=== PATIENT | female | born 1935 | race Caucasian/White ===

== ENCOUNTER 2019-11-06 15:42 | Outpatient (CLI) | payer OTHER, SELFPAY ==
--- NOTE | ~2019-11-06 | MM_ITS ---
EXAMINATION: MM screening paramjit BI w marley HISTORY: Screening mammogram TECHNIQUE: Craniocaudal and mediolateral oblique 3-D tomosynthesis images were obtained and synthetic 2-D images were generated. CAD analysis was submitted and interpreted. COMPARISON: 07/14/2018 bilateral digital screening mammogram 06/13/2017 diagnostic left digital mammogram 06/07/2017 and 05/31/2016 bilateral digital screening mammogram examinations BREAST PARENCHYMAL COMPOSITION: The breasts are heterogeneously dense, which may obscure small masses . FINDINGS: There are scattered bilateral benign calcifications. There is no evidence of suspicious mas s, calcification, or architectural distortion to suggest malignancy in either breast. There has been no suspicious interval change. IMPRESSION: 1. No mammographic evidence of malignancy. 2. Recommend routine screening mammography in one year. BI-RADS Category 2: Benign finding(s). Reviewed, dictated and finalized at location A.
== END 2019-11-06 15:43 | disposition home or self-care (01) ==
LOC: ANHIMG 15:47
PROVIDERS: PCP Internal Medicine; Visit Provider Internal Medicine
DX: Z12.31 Encounter for screening mammogram for malignant neoplasm of breast (principal)
CPT/HCPCS: 77063; 77067

== ENCOUNTER 2021-03-10 10:37 | Outpatient (CLI) | payer OTHER, SELFPAY ==
--- NOTE | ~2021-03-10 | MM_ITS ---
EXAMINATION: MM screening paramjit BI w marley HISTORY: Screening mammogram TECHNIQUE: Craniocaudal and mediolateral oblique 3-D tomosynthesis images were obtained and synthetic 2-D images were generated. CAD analysis was submitted and interpreted. COMPARISON: 11/06/2019, 07/14/2018, 06/13/2017, 06/07/2017 BREAST PARENCHYMAL COMPOSITION: The breasts are heterogeneously dense, which may obscure small masses . FINDINGS: Scattered benign-appearing calcifications are present. There is no evidence of suspicious m ass, calcification, or architectural distortion to suggest malignancy in either breast. There has bee n no suspicious interval change. IMPRESSION: 1. No mammographic evidence of malignancy. 2. Recommend routine screening mammography while the patient remains in good health. BI-RADS Category 2: Benign finding(s). Reviewed, dictated and finalized at location A. 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 No mammographic evidence of malignancy. 2. Recommend routine screening mammography while the patient remains in good he alth. BI-RADS Category 2: Benign finding(s).
== END 2021-03-10 10:38 | disposition home or self-care (01) ==
PROVIDERS: PCP Internal Medicine; Visit Provider Internal Medicine
DX: Z12.31 Encounter for screening mammogram for malignant neoplasm of breast (principal)
CPT/HCPCS: 77063; 77067

== ENCOUNTER 2022-04-25 12:15 | Emergency (ER) | payer OTHER, SELFPAY ==
[2022-04-25 12:16] VITALS: BP 132/71; PULSE 80; RESP 18; TEMP 36.9; O2SAT 99
[2022-04-25 15:26] VITALS: O2SAT 98
[2022-04-25 15:30] VITALS: O2SAT 95
[2022-04-25 15:31] VITALS: BP 147/74; O2SAT 98
--- NOTE | 2022-04-25 15:32 | ED.LOWEXIN ---
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 Patient states the pain feels identical to previous flare-ups but is more severe in nature. She was unable to walk this morning due to pain. She attempted her home [place] 7/ but did not have immediate relief. Patient presents now improved 3 hours after taking her [place]. She has been able to walk. Denies trauma to the leg. She follows with Dr. De La Torre from neurosurgery and is scheduled to have an MRI done next week. No saddle anesthesia, incontinence or retention of bowel or bladder. Related Data Home Medications Medication Instructions Recorded Confirmed Lactobacills gasseri-Bifidobac cap PO 04/09/22 04/09/22 bifidum,longum 1.5 billion cell capsule (Apportable) atenolol 50 mg tablet 50 mg PO DAILY 04/09/22 04/09/22 atorvastatin 40 mg tablet 40 mg PO DAILY 04/09/22 04/09/22 benazepril 10 mg tablet 10 mg PO DAILY 04/09/22 04/09/22 diclofenac sodium 75 mg 75 mg PO BID 04/09/22 04/09/22 tablet,delayed release digoxin 250 mcg (0.25 mg) tablet 250 mcg PO DAILY 04/09/22 04/09/22 levothyroxine 50 mcg capsule 50 mcg PO DAILY 04/09/22 04/09/22 metoprolol tartrate 25 mg tablet 12.5 mg PO BID 04/09/22 04/09/22 multivitamin (Daily Multi-Vitamin 1 tablet PO DAILY 04/09/22 04/09/22 tablet) periton.dialysis 7-2.5 % dextr ml intraperitoneal 04/09/22 04/09/22 (Delflex with 2.5 % Dextrose) triamterene 37.5 1 cap PO DAILY 04/09/22 04/09/22 mg-hydrochlorothiazide 25 mg capsule vitamin B complex (B 1 tablet PO DAILY 04/09/22 04/09/22 Complex-Vitamin B12 tablet) Allergies Allergy/AdvReac Type Severity Reaction Status Date / Time No Known Allergies Allergy Verified 04/09/22 10:35 Review of Systems Review of Systems: Gen.: Denies fevers or chills Eyes: Denies eye pain or visual change ENT: Denies congestion Respiratory: Denies shortness of breath or cough CV: Denies chest pain or palpitations GI: Denies abdominal pain nausea, emesis or diarrhea denies burning, urgency, frequency or hematuria Musculoskeletal: Reports right lower extremity pain Neuro: Denies numbness, tingling, weakness or focal weakness Skin: Denies rash Except as documented, all other systems reviewed and negative PMFSH Social History Social History Smoking status: Never smoker Exam Narrative: APPEARANCE: Well appearing, no pain in distress, well-nourished. Head: Normocephalic and atraumatic. EYES: PERRLA/EOMI, conjunctivae clear NOSE: No nasal drainage EARS: External ear normal in appearance THROAT: Oropharynx is clear. Mucous membranes are moist. NECK: Supple. No adenopathy, no masses. RESPIRATORY: Airway patent, respirations nonlabored. Clear to auscultation bilaterally, no rales, rhonchi, wheezing. CARDIOVASCULAR: Regular rate and rhythm without murmurs, rubs, or gallops. ABDOMINAL: Normoactive bowel sounds. Soft, nontender, nondistended. No rebound tenderness or guarding. MUSCULOSKELETAL: Extremities are warm and well-perfused. Moves all extremities well. No edema. NEURO: Normal speech. No focal neurologic deficits. SKIN: Skin is warm and dry. No rashes. PSYCHIATRIC: Normal affect/mood. Course Vital Signs Vital signs: Vital Signs Temperature 98.4 F 04/25/22 12:16 Pulse Rate 80 04/25/22 12:16 Respiratory Rate 18 04/25/22 12:16 Blood Pressure 132/71 04/25/22 12:16 Pulse Oximetry 99 04/25/22 12:16 Oxygen Delivery Room Air 04/25/22 12:16 Temperature 98.4 F 04/25/22 12:16 Pulse Rate 80 04/25/22 12:16 Respiratory Rate 18 04/25/22 12:16 Blood Pressure 147/74 H 04/25/22 15:31 Pulse Oximetry 98 04/25/22 15:31 Oxygen [facility]
== END 2022-04-25 17:50 | disposition home or self-care (01) ==
PROVIDERS: Emergency Provider Physician Assistant; PCP Internal Medicine
DX: M43.16 Spondylolisthesis, lumbar region (principal)
CPT/HCPCS: 99281

== ENCOUNTER 2022-05-17 10:43 | Outpatient (CLI) | payer OTHER, SELFPAY ==
--- NOTE | ~2022-05-17 | XR_ITS ---
Lumbosacral Spine: AP and lateral views, with neutral, flexion, and extension positioning. Clinical History: Pain Findings: The normal lordotic curve is maintained. No fracture identified. 7 mm anterolisthesis of L3 over L4 present. 1.6 cm anterolisthesis of L4 over L5 present. There are advanced facet joint degene rative changes from L3 through S1. There is moderate to severe degenerative disc narrowing at L4-L5 a nd L5-S1. No definite instability seen on flexion or extension views. The sacroiliac joints are radha lly outlined. Impression: 1.6 cm anterolisthesis of L4 over L5. 0.7 cm anterolisthesis of L3 over L4. No definite instability seen on flexion or extension. Additional degenerative spondylitic changes, as noted above. Reviewed, dictated and finalized at [facility]. 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 0.7 cm anterolisthesis of L3 over L4. No definite instability seen on flexion or extension. Additional degenerative spondylitic changes, as noted above.
--- NOTE | ~2022-05-17 | MR_ITS ---
EXAMINATION: MR lumbar spine wo con DATE: 05/17/2022 11:37 INDICATION: Back pain. TECHNIQUE: Magnetic resonance imaging (MRI) of the lumbar spine was performed without intravenous con trast. Sequences included sagittal T2-weighted FSE, sagittal T2-weighted FS FSE, sagittal T1-weighted FSE, and axial T2-weighted FSE. COMPARISON: Lumbar spine radiographs 05/17/2022 FINDINGS: There is 8 degrees dextrocurvature of lumbar spine. There is 12 mm anterolisthesis of L4 on L5. There is 5 mm anterolisthesis of L3 on L4. There is mildly decreased disc height at L3-L4. There is severely decreased disc height at L4-L5 with 2/5 chronic height loss of L4 vertebral body posteri colt and 1/5 chronic height loss of L5 vertebral body anteriorly. There is severely decreased disc he ight at L5-S1 with endplate remodeling. The distal spinal cord signal intensity is normal. The conus medullaris is at L1. The following disc levels are specifically discussed: L1-L2: The disc is mildly bulging. There is mild bilateral facet joint osteoarthritis. There is mild bilateral neural foraminal stenosis. There is no central canal stenosis. L2-L3: The disc is bulging. There is mild right and moderate left facet joint osteoarthritis. There i s mild bilateral neural foraminal stenosis. There is mild central canal stenosis. L3-L4: The disc is bulging. There is severe bilateral facet joint osteoarthritis. There is mild bilat eral neural foraminal stenosis. There is mild central canal stenosis. L4-L5: The disc is bulging and has an annular fissure. There is severe bilateral facet joint osteoart hritis. There is severe right and moderate left neural foraminal stenosis. There is severe central ca nal stenosis. L5-S1: The disc is bulging and has an annular fissure. There is severe bilateral facet joint osteoart hritis. There is mild bilateral neural foraminal stenosis. There is mild central canal stenosis. IMPRESSION: 1. Severe lower lumbar spondylosis. Reviewed, dictated and finalized at location A. 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
== END 2022-05-17 10:44 | disposition home or self-care (01) ==
PROVIDERS: PCP Internal Medicine; Visit Provider Neurological Surgery
DX: M43.16 Spondylolisthesis, lumbar region (principal); M47.896 Other spondylosis, lumbar region
CPT/HCPCS: 72110; 72148

== ENCOUNTER 2022-08-19 11:41 | Outpatient (CLI) | payer OTHER, SELFPAY ==
--- NOTE | ~2022-08-19 | XR_ITS ---
EXAMINATION: XR lumbar spine 2-3V DATE: 08/19/2022 12:15 INDICATION: Lumbar decompression TECHNIQUE: Anteroposterior and lateral views of the lumbar spine, and cone-down lateral view of the l umbosacral junction were obtained. COMPARISON: 05/17/2022 FINDINGS: There are changes of interval posterior fusion and laminectomy from L3 through L5. There ar e 7 mm stable anterolisthesis of L3 on L4 and 16 mm of stable anterolisthesis of L4 on L5. The verteb ral body heights are maintained. There is unchanged severe loss of intervertebral disc space height a t L4-5 and L5-S1. There is no fracture. Calcified atherosclerosis is noted. IMPRESSION: 1. Changes of interval posterior fusion and laminectomy from L3 through L5. 2. Stable severe spondylosis at L4-5 and L5-S1. Reviewed, dictated and finalized at location L.
== END 2022-08-19 11:42 | disposition home or self-care (01) ==
PROVIDERS: PCP Student in an Organized Health Care Education/Training Program; Visit Provider Neurological Surgery
DX: M47.817 Spondylosis without myelopathy or radiculopathy, lumbosacral region (principal); Z98.1 Arthrodesis status
CPT/HCPCS: 72100

== ENCOUNTER 2022-11-09 10:23 | Outpatient (CLI) | payer OTHER, SELFPAY ==
--- NOTE | ~2022-11-09 | XR_ITS ---
EXAMINATION: XR lumbar spine 2-3V DATE: 11/09/2022 10:47 INDICATION: Four-month postlumbar fusion TECHNIQUE: Anteroposterior and lateral views of the lumbar spine, and cone-down lateral view of the l umbosacral junction were obtained. COMPARISON: 08/19/2022 FINDINGS: Again noted are changes of posterior fusion in laminectomy from L3 through L5. There are 7 mm of stable anterolisthesis of L3 on L4 and 16 mm of stable anterolisthesis of L4 on L5. There is se lauryn loss of intervertebral disc space height at L4-5 and L5-S1. The vertebral body heights are maint ained. There is no fracture. Calcified atherosclerosis is noted. IMPRESSION: 1. Changes of posterior fusion and laminectomy from L3 through L5 and severe lumbar spondylosis witho ut acute findings or significant interval change. Reviewed, dictated and finalized at location A. IMPRESSION: 1. Changes of posterior fusion and laminectomy from L3 through L5 and severe ana mbar spondylosis without acute findings or significant interval change.
== END 2022-11-09 10:24 | disposition home or self-care (01) ==
PROVIDERS: PCP Student in an Organized Health Care Education/Training Program; Visit Provider Neurological Surgery
DX: Z98.890 Other specified postprocedural states (principal); Z98.1 Arthrodesis status
CPT/HCPCS: 72100

== ENCOUNTER 2023-01-19 14:50 | Outpatient (CLI) | payer OTHER, SELFPAY ==
--- NOTE | ~2023-01-19 | XR_ITS ---
EXAM: XR lumbar spine min 4V DATE: 01/19/2023 15:12 HISTORY: Z98.1 - Arthrodesis status, surgery 06/2022 . COMPARISON: None available. FINDINGS: 5 nonrib-bearing lumbar-type vertebral bodies. Uncomplicated appearing posterior fusion leach rdware and laminectomy spanning L3-L5. Stable L3-4 and L4-5 listheses. Vertebral body heights preserv ed. Mild lumbar scoliosis. Severe degenerative disc narrowing at L4-5 and L5-S1. Facet arthropathy at L5-S1. No fracture or dislocation. Aortic calcification with dilation of the distal aorta versus a p roximal iliac to 3.1 cm IMPRESSION: Status post posterior fusion and laminectomy from L3 through L5. No radiographic evidence of hardware -related complication. Stable listheses. Multilevel severe degenerative disc disease. Mild L5-S1 face t arthropathy. Distal aortic versus iliac aneurysm, consider ultrasound of the aorta for further evaluation.. Reviewed, dictated and finalized at location K. IMPRESSION: Status post posterior fusion and laminectomy from L3 through L5. No radiographi c evidence of hardware-related complication. Stable listheses. Multilevel sever e degenerative disc disease. Mild L5-S1 facet arthropathy. Distal aortic versus iliac aneurysm, consider ultrasound of the aorta for furth er evaluation..
== END 2023-01-19 14:51 | disposition home or self-care (01) ==
PROVIDERS: PCP Student in an Organized Health Care Education/Training Program; Visit Provider Neurological Surgery
DX: Z98.1 Arthrodesis status (principal); M51.36 Other intervertebral disc degeneration, lumbar region
CPT/HCPCS: 72110

== ENCOUNTER 2023-07-01 09:48 | Outpatient (CLI) | payer OTHER, SELFPAY ==
--- NOTE | ~2023-07-01 | XR_ITS ---
EXAMINATION: XR lumbar spine 2-3V DATE: 07/01/2023 10:06 INDICATION: Arthrodesis status. TECHNIQUE: 3 views of lumbar spine were obtained. COMPARISON: Lumbar spine radiographs 01/19/2023 FINDINGS: There is 12 degrees dextroscoliosis of lumbar spine. There is 8 mm anterolisthesis of L3 on L4 and 13 mm anterolisthesis of L4 on L5. There are changes of posterior fusion procedure from L3 to L5 with pedicle screws. Vertebral body heights are normal. There is mildly decreased disc height at L3-L4 and severely decreased disc height at L4-L5 and L5-S1. There is multilevel severe facet joint o steoarthritis. IMPRESSION: 1. Severe lumbar spondylosis. 2. Posterior fusion procedure from L3 to L5. 3. Lumbar dextroscoliosis. Reviewed, dictated and finalized at location A.
== END 2023-07-01 09:49 | disposition home or self-care (01) ==
PROVIDERS: PCP Family Medicine; Visit Provider Physician Assistant
DX: M43.16 Spondylolisthesis, lumbar region (principal); Z98.1 Arthrodesis status; M47.896 Other spondylosis, lumbar region
CPT/HCPCS: 72100